=== PATIENT | male | born 1980 | race Asian ===

== ENCOUNTER 2016-10-18 20:45 | Inpatient (IN) | payer SELFPAY ==
[2016-10-18] MEDS ORDERED: TYLENOL ONE (21:39)
--- NOTE | 2016-10-18 21:39 | Emergency Department Report ---
- General Stated complaint: GENERAL WEAKNESS Time Seen by Provider: 10/18/16 21:32 Source: patient, family - History of Present Illness Initial comments: junior staff accountant used at bedside. 36-year-old male with history of hepatitis C, end-stage renal disease on hemodialysis Sunday//Sunday is presenting to the emergency department complaining of generalized weakness. Onset of symptoms started 3 days prior. Patient denies inciting factor. Patient states he feels weak all over his body. She denies focal neuro deficits, slurred speech, facial droop. Patient does endorse cough that is nonproductive. Patient endorses one day of fever. Since arriving to the ED patient states he's coughed so much he now has anterior wall chest pain. Patient denies: Ache, neck pain, abdominal pain, nausea/vomiting/diarrhea. MD Complaint: generalized weakness -: Gradual, days(s) (3) Location: generalized Quality: aching Consistency: constant Improves with: none Worsens with: movement Associated Symptoms: chest pain, fever/chills, myalgias. denies: confusion, dark stools, diaphoresis, dysuria, headaches, loss of appetite, nausea/vomiting , shortness of breath, syncope - Related Data Allergies Allergy/AdvReac Type Severity Reaction Status Date / Time No Known Allergies Allergy Unverified 10/18/16 21:38 ED Review of Systems ROS: Stated complaint: GENERAL WEAKNESS Other details as noted in HPI Constitutional: fever, malaise, weakness. denies: chills Eyes: denies: eye pain, eye discharge, vision change ENT: denies: ear pain, throat pain Respiratory: cough. denies: orthopnea, shortness of breath, SOB with exertion, SOB at rest, wheezing Cardiovascular: chest pain. denies: palpitations Endocrine: no symptoms reported Gastrointestinal: denies: abdominal pain, nausea, diarrhea, constipation, hematemesis Genitourinary: denies: urgency, dysuria Musculoskeletal: denies: back pain, joint swelling, arthralgia Skin: denies: rash, lesions Neurological: denies: headache, weakness, paresthesias Psychiatric: denies: anxiety, depression Hematological/Lymphatic: denies: easy bleeding, easy bruising ED Physical Exam - General General appearance: alert, in no apparent distress - Head Head exam: Present: atraumatic, normocephalic - Eye Eye exam: Present: normal appearance - ENT ENT exam: Present: mucous membranes moist - Neck Neck exam: Present: normal inspection - Respiratory Respiratory exam: Present: normal lung sounds bilaterally. Absent: respiratory distress - Cardiovascular Cardiovascular Exam: Present: regular rate, normal rhythm. Absent: systolic murmur, diastolic murmur, rubs, gallop - GI/Abdominal GI/Abdominal exam: Present: soft, normal bowel sounds - Rectal Rectal exam: Present: deferred - Extremities Exam Extremities exam: Present: normal inspection, other (right extremity AV shunt has positive thrill) - Back Exam Back exam: Present: normal inspection - Neurological Exam Neurological exam: Present: alert, oriented X3 - Psychiatric Psychiatric exam: Present: normal affect, normal mood - Skin Skin exam: Present: warm, dry, intact, normal color. Absent: rash - Assessment Assessment Interval: Baseline - Level of Consciousness 1a. Level of Consciousness: alert - LOC Questions 1b. LOC Questions: answers correctly - LOC Command 1c. LOC Commands: performs tasks correctly - Best Gaze 2. Best Gaze: normal - Visual 3. Visual: no visual loss - Facial Palsy 4. Facial Palsy: normal symmetrical movement - Motor Arm 5b. Motor Arm Right: no drift 5a. Motor Arm Left: no drift - Motor Leg 6a. Motor Leg Left: no drift 6b. Motor Leg Right: no drift - Limb Ataxia 7. Limb Ataxia: absent - Sensory 8. Sensory: normal - Best Language 9. Best Language: no aphasia - Dysarthria 10. Dysarthria: normal - Extinction and Inattention 11. Extinction/Inattention: no abnormality - Scoring Total Score: 0 Stroke Severity: No Stroke Symptoms ED Course Vital Signs 10/18/16 10/18/16 10/18/16 21:14 21:20 21:30 Temperature Pulse Rate 91 H 86 82 Respiratory 16 18 10 L Rate Blood Pressure 118/82 Blood Pressure [Left] O2 Sat by Pulse 98 98 Oximetry 10/18/16 10/18/16 10/18/16 21:32 21:40 21:50 Temperature 100.3 F H Pulse Rate 90 84 81 Respiratory 16 13 18 Rate Blood Pressure 120/85 118/82 100/72 Blood Pressure 120/85 [Left] O2 Sat by Pulse 100 96 98 Oximetry 10/18/16 10/18/16 10/18/16 22:00 22:10 22:20 Temperature Pulse Rate 80 80 76 Respiratory 10 L 14 12 Rate Blood Pressure 100/72 113/82 119/80 Blood Pressure [Left] O2 Sat by Pulse 97 100 99 Oximetry 10/18/16 10/18/16 10/18/16 22:30 22:40 22:50 Temperature Pulse Rate 76 83 77 Respiratory 12 12 8 L Rate Blood Pressure 104/75 104/75 114/82 Blood Pressure [Left] O2 Sat by Pulse 95 97 96 Oximetry 10/18/16 23:00 Temperature Pulse Rate 78 Respiratory 9 L Rate Blood Pressure 108/77 Blood Pressure [Left] O2 Sat by Pulse 96 Oximetry ED Medical Decision Making - Lab Data Result diagrams: 10/18/16 22:06 10/18/16 22:06 - EKG Data -: EKG Interpreted by Me EKG shows normal: sinus rhythm, axis (normal), intervals (486), QRS complexes ( 84), ST-T waves Rate: normal - EKG Data When compared to previous EKG there are: previous EKG unavailable Interpretation: nonspecific ST-T wave john - Radiology Data Radiology results: image reviewed interpreted by me: pt has right middle lobe infiltrate - Medical Decision Making 36 yo male with PMHX of ESRD, Hep C presenting to ED complaining of generalized weakness. Given infilatrate seen on CXR, I am concerned that pt may have PNA. Pul edema is a differential therefor I have discussed pt with Dr Marquez nephrology who will likely see pt in the am. Pt had several episodes of hemoptysis in ED therefor CTA chest ordered to investigate for possibility of PE. Pt has been accepted to Dr Ryan Hospitalist service Critical Care Time: No Critical care attestation.: If time is entered above; I have spent that time in minutes in the direct care of this critically ill patient, excluding procedure time. ED Disposition Clinical Impression: Fever, Fatigue, Pneumonia, Hemoptysis, End stage renal disease Disposition: OP ADMIT IP TO THIS HOSP Is pt being admited?: Yes Condition: Stable Referrals: PRIMARY CARE, [Primary Care Provider] - 3-5 Days
[2016-10-18] MEDS ORDERED: TYLENOL PO ONE (21:40)
[2016-10-18] MEDS ORDERED: LEVAQUIN 750MG/150ML 750 MG/150 ML BAG IV SCH (22:00)
[2016-10-18 22:32] LABS: Basophils % (Auto) 0.6 % (0.0-1.8); Eosinophils % (Auto) 2.6 % (0.0-4.3); Hematocrit 27.4 % (35.5-45.6); Mean Corpuscular HGB Conc 33 % (32-34); Mean Corpuscular Hemoglobin 30 pg (28-32); Mean Corpuscular Volume 92 fl (84-94); Platelet Count 225 K/mm3 (140-440); Red Blood Count 2.98 M/mm3 (3.65-5.03); Red Cell Distribution Width 16.8 % (13.2-15.2); White Blood Count 7.8 K/mm3 (4.5-11.0)
[2016-10-18 22:41] LABS: INR 1.34 (0.87-1.13)
[2016-10-18 22:42] LABS: Partial Thromboplastin Time 41.1 Sec. (24.2-36.6)
[2016-10-18 22:52] LABS: Albumin 3.7 g/dL (3.9-5); Albumin/Globulin Ratio 1.1 %; BUN/Creatinine Ratio 4.7; Bilirubin,Total 0.2 mg/dL (0.1-1.2); Calcium 9.6 mg/dL (8.4-10.2); Chloride 92.8 mmol/L (98-107); Potassium 4.8 mmol/L (3.6-5.0); Total Protein 7.2 g/dL (6.3-8.2)
[2016-10-19] MEDS ORDERED: MORPHINE IV ONE ×3 (00:07→17:00)
[2016-10-19] MEDS ORDERED: ZOFRAN IV ONE ×2 (00:08)
[2016-10-19] MEDS ORDERED: NACL ONE (00:43)
--- NOTE | 2016-10-19 02:52 | Cat Scan Report ---
FINAL REPORT PROCEDURE: CT ANGIO CHEST TECHNIQUE: Computerized tomographic angiography of the chest was performed after the IV injection of iodinated nonionic contrast including image processing. The image data was postprocessed using 2-dimensional multiplanar reformatted (MPR) and 3-dimensional (MIP and/or volume rendered) techniques. HISTORY: for PE. Pt will get dialysis tomorrow, ok to scan chest pain COMPARISON: No prior studies are available for comparison. FINDINGS: Heart and pericardium: Normal. Thoracic aorta: Normal. Pulmonary vasculature: Normal. Lymph nodes: No enlarged thoracic lymph nodes. Lungs: Mild infiltrates identified in both lower lungs. The central airway is patent. No effusion or pneumothorax.. Pleural space: No effusion, thickening, or pneumothorax. Musculoskeletal structures: No significant abnormality. Upper abdominal structures: Bilateral multiple renal cortical cysts are identified. Polycystic kidney disease is suspected.. IMPRESSION: There is no evidence of pulmonary arterial emboli. Mild bilateral lower lung infiltrates.
--- NOTE | 2016-10-19 03:12 | Admit Criteria Form ---
Admission Criteria Documentation: PNEUMONIA, COMMUNITY ACQUIRED Clinical Indications for Admission to Inpatient Care (Place ' X' for any and all applicable criteria): Admission to inpatient status for two midnights or more is indicated for ANY ONE of the following (1)(2)(3): [ ]I. Hypoxia [ ]II. Hemodynamic instability [ ]III. Altered mental status that is severe or persistent [ ]IV. Dehydration that is severe or persistent. [ ]V. Bacteremia [ ]. Moderate-risk or high-risk category patients (Pneumonia Severity Index ( PSI) class IV or V, or CURB-65 score of 3 or greater). [ ]VII. Intermediate-risk category patients (e.g., PSI class III or CURB-65 score 2) who do not improve with outpatient and observation care treatment [ ]VIII. Outpatient treatment failure as indicated by 1 or more of the following(9): [ ]a) Failure to respond to antibiotic (eg, resistant organism) [ ]b) Clinically significant adverse effects from medication (eg, vomiting) [ ]c) Complications of pneumonia (eg, empyema, bacteremia) [ ]d) Significant worsening of comorbid cond necessitating inpatient care (eg, chronic heart failure) [X ]IX. Appropriate diagnostic testing and treatment unavailable in outpatient or recovery facility (eg, testing or infection control measures unavailable) [ ]X. Respiratory finding (eg. tachypnea) that do not respond to outpatient observation care treatment [ ]XI. Complicated pleural effusions (eg, emphysema, exudative, loculated) [ ]XII. Immunocompromised patients (e.g., AIDS, chronic steroid use) at moderate or high risk based on clinical evaluation. Extended stay beyond goal length of stay may be needed for (20) [ ]a) Unclear diagnosis [ ]b) Pleural disease [ ]c) Severe pneumonia or treatment failure [ ]d) Respiratory failure [ ]e) New onset hyponatremia (serum Na concentration less than 135 mEq/L(mmol/ L) [ ]f) Clinically significant comorbid illness (eg, heart failure, atrial fibrillation with rapid heart rate, alcohol withdrawal, renal insufficiency)(34)(35) [ ]g) Comorbid acute exacerbation of COPD(36) [ ]h) Concomitant diagnosis of malignancy [ ]i) Concomitant altered mental status [ ]j) Culture-identified Gram-negative or antibiotic-resistant organism (eg, Pseudomonas, methicillin-resistant Staphylococcus aureus MRSA)(30) [ ]k) Healthcare-associated pneumonia (36) The original [facility] [employer] content created by [facility] has been revised. The portions of the content which have been revised are identified through the use of italic text or in bold, and [facility] has neither reviewed nor approved the modified material. All other unmodified content is copyright [facility] [employer] [facility]. Please see references footnoted in the original [facility] edition 2016 Admission Criteria Met: Yes
--- NOTE | 2016-10-19 08:26 | XRay Report ---
AP CHEST :10/18/16 21:33:00 CLINICAL: Cough. COMPARISON:None. FINDINGS: Normal heart and pulmonary vasculature. The lungs are clear except for mild bibasal prominent interstitial opacities. No air space disease or pleural effusion. The bones and soft tissues are normal. IMPRESSION: Probably chronic bibasal interstitial opacities.No CHF or pneumonia.
[2016-10-19] MEDS ORDERED: MILK OF MAGNESIA PO PRN (09:55)
[2016-10-19] MEDS ORDERED: DULCOLAX PR PRN (09:55)
[2016-10-19] MEDS ORDERED: ZOFRAN IV PRN (09:55)
[2016-10-19] MEDS ORDERED: NACL 0.9% 1000 ML 1,000 ML IV SCH (10:00)
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
[2016-10-19] MEDS ORDERED: NACL 0.9% 100 ML IV PRN (11:24)
--- NOTE | 2016-10-19 11:24 | Consultation ---
History of Present Illness - Reason for Consult Consult date: 10/19/16 end stage renal disease - History of Present Illness Patient is a 36-year-old male with a past medical history significant for ESRD on hemodialysis (TTS) at [facility] and Hepatitis C came to the ER with generalized weakness, fatigue and malaise. History is limited due to language barrier. He admited to coughing, with scant sputum and anterior chest wall pain. He was last dialyzed 2 days ago. Past History Past Medical History: dialysis, ESRD, other (chronic hep C) Past Surgical History: Other (AV fistula placements) Social history: no significant social history Family history: no significant family history Medications and Allergies Allergies Allergy/AdvReac Type Severity Reaction Status Date / Time No Known Allergies Allergy Unverified 10/18/16 21:38 Home Medications Medication Instructions Recorded Confirmed Last Taken Type Unobtainable 10/19/16 10/19/16 Unknown History Active Meds: Active Medications Acetaminophen (Tylenol) 650 mg PO Q4H PRN PRN Reason: Pain MILD(1-3)/Fever >100.5/SOSA Bisacodyl (Dulcolax) [address] QDAY PRN PRN Reason: Constipation unrelieved by [facility] [place] [place] Heparin Sodium (Porcine) (Heparin) 5,000 unit SUB-Q Q8HR SHANELLE Levofloxacin/Dextrose (Levaquin 500mg/100ml) 500 mg in 100 mls @ 100 mls/hr IV Q48HR SHANELLE PRN Reason: Protocol Sodium Chloride (Nacl 0.9% 1000 Ml) 1,000 mls @ 125 mls/hr IV DIRECT SHANELLE Stop: 10/19/16 21:59 Magnesium Hydroxide (Milk Of Magnesia) 30 ml PO Q4H PRN PRN Reason: Constipation Ondansetron HCl (Zofran) 4 mg IV Q8H PRN PRN Reason: N/V unrelieved by Reglan Review of Systems Constitutional: other (unable to obtain a detail ROS.) Exam - Vital Signs Vital signs: Vital Signs Pulse Resp 91 H 16 10/18/16 21:14 10/18/16 21:14 - General Appearance General appearance: well-developed, appears stated age, other (no distress) EENT: ATNC, PERRL, mucous membranes moist, hearing intact, vision intact Neck: Present: neck supple Respiratory: Clear to Ascultation Heart: regular, S1S2, no murmurs Gastrointestinal: Present: normoactive bowel sounds Integumentary: no rash Neurologic: no focal deficit, no asterixis, alert and oriented x3 Musculoskeletal: Present: other (no edema, right FA AVF) Psychiatric: cooperative Results - Lab Results 10/18/16 22:06 10/18/16 22:06 Most recent lab results Calcium 9.6 mg/dL (8.4-10.2) 10/18/16 22:06 Assessment and Plan - Patient Problems (1) End stage renal disease Current Visit: Yes Status: Chronic Plan to address problem: Continue hemodialysis three times a week, TTS schedule. (2) Anemia of renal disease Current Visit: Yes Status: Chronic Plan to address problem: Epogen ordered. (3) Pneumonia Current Visit: Yes Status: Acute Qualifiers: Pneumonia type: P Aspiration pneumonia type: A Laterality: L Lung location: L Plan to address problem: On Levofloxacin.
[2016-10-19] MEDS ORDERED: NACL 0.9 (PRIMING MACHINE ONLY DIALYSIS) MC ONE (15:39)
[2016-10-19] MEDS: TYLENOL PO PRN (22:30)
[2016-10-19] MEDS: HEPARIN SUB-Q SCH (22:31)
[2016-10-20 08:47] LABS: Basophils % (Auto) 0.7 % (0.0-1.8); Eosinophils % (Auto) 2.9 % (0.0-4.3); Hematocrit 29.9 % (35.5-45.6); Hemoglobin 9.6 gm/dl (11.8-15.2); Mean Corpuscular HGB Conc 32 % (32-34); Mean Corpuscular Hemoglobin 30 pg (28-32); Mean Corpuscular Volume 93 fl (84-94); Platelet Count 197 K/mm3 (140-440); Red Blood Count 3.22 M/mm3 (3.65-5.03); Red Cell Distribution Width 16.8 % (13.2-15.2); White Blood Count 6.6 K/mm3 (4.5-11.0)
[2016-10-20 09:05] LABS: BUN/Creatinine Ratio 3.71; Calcium 10.2 mg/dL (8.4-10.2); Chloride 96.8 mmol/L (98-107); Potassium 5.3 mmol/L (3.6-5.0)
[2016-10-20] MEDS: TYLENOL PO PRN (09:16)
--- NOTE | 2016-10-20 09:25 | Discharge Summary ---
Providers - Providers Date of Admission: 10/19/16 09:55 Attending physician: YO VERDUGO MD Primary care physician: WHITE SPOOLER Hospitalization Condition: Stable Hospital course: 36-year-old male past medical history of chronic hep C and end-stage renal disease on hemodialysis Sunday who presented fatigue malaise and cough. Found to have fever and pneumonia. Nosocomial pneumonia- does not meet sepsis criteria He had received IVF and IV abx, and was transitioned to PO abx End-stage renal disease continued on HD, nephrology comanaged the patient Anemia of chronic disease He was continued on Epo DVT prophylaxis he received Heparin subcutaneous peripheral neuropathy continued home med of neurontin Coumadin use not clear the indication, but he says it is to prevent clots; he denies Afib or hx of PE/DVT , but he has bleeding wounds on his scalp and he says he self stopped it a week ago, because he had bleeding in his gums He was advised to hold warfarin until he could be re-evaluated by his Doctors at [place] as he has bleeding wounds on his scalp at present Disposition: DC-01 TO HOME OR SELFCARE Time spent for discharge: 33 minutes Core Measure Documentation - Palliative Care Palliative Care/ Comfort Measures: Not Applicable - Core Measures Any of the following diagnoses?: none Exam - Constitutional Vitals: Temp Pulse Resp BP Pulse Ox 99.5 F 92 H 20 103/82 98 10/19/16 23:10 10/19/16 23:10 10/19/16 23:10 10/19/16 23:10 10/19/16 23:10 General appearance: Present: no acute distress, well-nourished - EENT Eyes: Present: PERRL ENT: hearing intact, clear oral mucosa - Neck Neck: Present: supple, normal ROM - Respiratory Respiratory effort: normal Respiratory: bilateral: rales (bases) - Cardiovascular Heart Sounds: Present: S1 & S2. Absent: rub, click - Extremities Extremities: pulses symmetrical, No edema Peripheral Pulses: within normal limits - Abdominal General gastrointestinal: Present: soft, non-tender, non-distended, normal bowel sounds Male genitourinary: Present: normal - Integumentary Integumentary: Present: clear, warm, dry (multiple bleeding shallow ulcers on Top left scalp) - Musculoskeletal Musculoskeletal: gait normal, strength equal bilaterally - Psychiatric Psychiatric: appropriate mood/affect, intact judgment & insight - Neurologic Neurologic: CNII-XII intact, moves all extremities Plan Additional Instructions: Please Hold warfarin until you are seen at [place] next week. Please finish your antibiotics, you are to take it after dialysis for the next 3 sessions Follow up with: PRIMARY CARE, [Primary Care Provider] - 3-5 Days Prescriptions: Gabapentin [Gralise] 300 mg PO QHS #30 tab.er.24h Acetaminophen/Codeine [Tylenol /Codeine # 3 tab] 1 tab PO Q6H PRN #30 tab PRN Reason: Pain Cinacalcet [Sensipar] 30 mg PO QDAY #30 tablet Levofloxacin [Levaquin TAB] 500 mg PO Q48H #3 tablet
[2016-10-20] MEDS ORDERED: LEVAQUIN 500MG/100ML 500 MG/100 ML BAG IV SCH (10:00)
[2016-10-20] MEDS ORDERED: MORPHINE IV ONE (14:21)
[2016-10-20] MEDS: HEPARIN SUB-Q SCH (14:54)
[2016-10-20 16:22] VITALS: BP 119/83
== END 2016-10-20 16:10 | disposition home or self-care (01) | DRG 193 ==
LOC: ED 20:45 → 3A 10-19 09:55
PROVIDERS: ADMIT Internal Medicine; ATTEND Internal Medicine
PROC: 5A1D00Z (ICD-10-PCS; principal; 2016-10-19)
DX: J18.9 Pneumonia, unspecified organism (principal); N18.6 End stage renal disease; Y95 Nosocomial condition; D63.1 Anemia in chronic kidney disease; G62.9 Polyneuropathy, unspecified; Z99.2 Dependence on renal dialysis; Z86.19 Personal history of other infectious and parasitic diseases; Z82.49 Family history of ischemic heart disease and other diseases of the circulatory system; Z95.818 Presence of other cardiac implants and grafts; Z79.01 Long term (current) use of anticoagulants
CPT/HCPCS: 36415; 71010; 71275; 80048; 80053; 82140; 83880; 84484; 85025; 85610; 85730; 87040; 93005; 93010; 96374; 99285; J1644; J1956; J2270; J2405; J7030; Q9967